=== PATIENT | male | born 1965 | race African-American/Black ===

== ENCOUNTER → 2020-06-30 08:32 | Outpatient (BNVA) | payer BC, SELFPAY | PROVIDERS: Visit Provider Surgery ==

== ENCOUNTER 2020-07-09 07:00 | Day surgery (SDC) | payer BC, SELFPAY ==
--- NOTE | 2020-07-08 09:45 | P.CONAN_ITS ---
Documented by User: Ashlee Hernandez 07/08/20 09:48 HPI - Anesthesia Eval Consult details Narrative: 54yo M for Upper Endoscopy BMI=66 PMFSH Active Problems Active Problems: All Active Problems (Updated 06/30/20 @ 10:38 by Mel Sahu MD) Morbid obesity due to excess calories (Acute) BMI 60.0-69.9, adult (Acute) Shortness of breath (Acute) Preoperative examination (Acute) Past Medical History Medical History (Updated 07/09/20 @ 08:07 by Anh Booker) Cough Iron deficiency Morbid obesity due to excess calories Family History Family History Mother Diabetes Hypertension Thyroid condition Father No problems noted. Brother No problems noted. Son No problems noted. 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 Hx of knee surgery Social History Social History Alcohol intake: current Alcohol intake frequency: holidays/special occasions only Patient Tobacco Use Status: Current someday Tobacco user Tobacco use type: Cigar Years Smoked: 3 cigars per month Smoked in Last 30 Days: No Second Hand Smoke Exposure: No Use of substances other than those prescribed or required for medical reasons: No Are you DNR?: No Advance Directives: No Advance Directives Information Provided: Yes Advance Directives on File: No Meds Allergies Allergy/AdvReac Type Severity Reaction Status Date / Time penicillin V Allergy Severe Anaphylaxis Verified 06/30/20 09:28 Home Medications Medication Instructions Recorded Confirmed Last Taken Type ascorbate calcium (vitamin C) 500 2 g PO DAILY tab 06/30/20 06/30/20 Unknown History mg tablet cholecalciferol (vitamin D3) 125 125 mcg PO DAILY 06/30/20 06/30/20 Unknown History mcg (5,000 unit) capsule mecobalamin (vitamin B12) 5,000 5,000 mcg PO DAILY 06/30/20 06/30/20 Unknown History mcg lozenge Exam Exam Date and Time: July 08, 2020 0945 Assessment and Plan Assessment Anesthesia Assessment: Chart Reviewed Documented by User: Anh Booker 07/09/20 08:10 [facility] Past Medical History Medical History (Updated 07/09/20 @ 08:07 by Anh Booker) Cough Iron deficiency Morbid obesity due to excess calories Family History Family History Mother Diabetes Hypertension Thyroid condition Father No problems noted. Brother No problems noted. Son No problems noted. 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 Hx of knee surgery History of Problems with Anesthesia: No Social History Social History Alcohol intake: current Alcohol intake frequency: holidays/special occasions only Patient Tobacco Use Status: Current someday Tobacco user Tobacco use type: Cigar Years Smoked: 3 cigars per month Smoked in Last 30 Days: No Second Hand Smoke Exposure: No Use of substances other than those prescribed or required for medical reasons: No Are you DNR?: No Advance Directives: No Advance Directives Information Provided: Yes Advance Directives on File: No Meds Allergies Allergy/AdvReac Type Severity Reaction Status Date / Time penicillin V Allergy Severe Anaphylaxis Verified 06/30/20 09:28 Home Medications Medication Instructions Recorded Confirmed Last Taken Type ascorbate calcium (vitamin C) 500 2 g PO DAILY tab 06/30/20 06/30/20 Unknown History mg tablet cholecalciferol (vitamin D3) 125 125 mcg PO DAILY 06/30/20 06/30/20 Unknown History mcg (5,000 unit) capsule mecobalamin (vitamin B12) 5,000 5,000 mcg PO DAILY 06/30/20 06/30/20 Unknown History mcg lozenge Exam Exam Date and Time: Ht 5'6 Wt 398#(180.53kg) Height,Weight and Vital Signs: Vital Signs Temp Pulse Resp BP Pulse Ox 07/09/20 07:21 97.4 F 88 18 143/92 H 99 Pertinent Lab Results Pertinent Lab Results: Lab Results 07/09/20 Range/Units 07:07 COVID-19 ([facility]) Negative (Negative) COVID-19 Clin Com See Note 07/09/2020: EKG-NSR 92 Possible Left atrial enlargement T wave abnormality, consider lateral ischemia Abnormal ECG No previous ECGs available Narrative Narrative: Patient denies any h/o CP. No HTN. Some SOB. States had EKG in the past in CT. Never told of any abnormality Airway Mallampati Class: II TM Dist: >3cm Neck ROM: Full Loose/Missing/Broken Teeth: No (Permanent bridge) Heart: RRR Lungs: CTAB Assessment and Plan Assessment Anesthesia Assessment: Anesthesia Plan Discussed and Chart Reviewed Final Anesthetic Review NPO: Yes ASA Class: III Final Preanesthetic Review: No Changes in Pt Med Stat, Meds/Allgs Chart Reviewed, Consent Obtained/Reviewed and Anes Risks/Benef Reviewed Patient Risk: Intermediate Procedure Risk: Low Assessment/Block/Sedation in SS: Assess/Block/Sedation-SS Anesthetic Plan Anesthetic Plan: MAC: Disposition: Standard PACU
--- NOTE | 2020-07-08 16:04 | MHC.SHP ---
Pre-Procedural Eval Section B Chief Complaint: reflux Allergies: Allergies Allergy/AdvReac Type Severity Reaction Status Date / Time penicillin V Allergy Severe Anaphylaxis Verified 06/30/20 09:28 Plan I have reviewed the history and physical and performed a pertinent physical examination on my patient. No changes have occurred unless specified.
--- NOTE | 2020-07-09 | ECG_ITS ---
Test Reason : SOB PREOP Blood Pressure : / mmHG Vent. Rate : 091 BPM Atrial Rate : 091 BPM P-R Int : 148 ms QRS Dur : 092 ms QT Int : 356 ms P-R-T Axes : 030 -08 -03 degrees QTc Int : 437 ms Normal sinus rhythm Possible Left atrial enlargement T wave abnormality, consider lateral ischemia Abnormal ECG No previous ECGs available Referred By: Ashlee Hernandez Electronically Signed By:Ahsan Beckwith
[2020-07-09 07:21] VITALS: BP 143/92; PULSE 88; RESP 18; TEMP 36.3; O2SAT 99; BMI 63.9
[2020-07-09 07:33] LABS: IDNOW Serial# 9DD0AD1C
[2020-07-09 07:34] LABS: COVID-19 Test Negative (Negative)
[2020-07-09] MEDS: Lactated Ringers 1,000 ML 100 ML IVCONT (07:43)
--- NOTE | 2020-07-09 08:12 | PM.OP ---
Brief Operative Note Date of Service: 07/09/20 Pre-op diagnosis: Weight gain after gastric bypass many years ago Post-op diagnosis: same (Normal gastric bypass anatomy) Procedure: Esophagealgastrojejunoscopy, enteroscopy to 90 cm from the incisors, gastric biopsy x2 Implants: None Surgeon: Mel Sahu MD Anesthesia: MAC Was an Agricultural Inspector used for this Procedure?: No Estimated blood loss (mL): 0 Pathology: other (Gastric pouch biopsy x2) Condition: stable Disposition: PACU
[2020-07-09 08:40] VITALS: BP 143/89; PULSE 92; RESP 14; TEMP 36.3; O2SAT 100
[2020-07-09 08:55] VITALS: BP 152/94; PULSE 87; RESP 16; TEMP 36.3; O2SAT 99
--- NOTE | 2020-07-09 08:56 | OP_ITS ---
SURGEON: Mel Sahu MD PREOPERATIVE DIAGNOSIS: POSTOPERATIVE DIAGNOSIS: PROCEDURE PERFORMED: ESTIMATED BLOOD LOSS: COMPLICATIONS: None. ANESTHESIA: Total intravenous anesthesia with propofol given by the nurse assembler tubing. ASSISTANTS: SPECIMENS: PREPROCEDURE DIAGNOSIS: Weight gain after gastric bypass many years ago. POSTPROCEDURE DIAGNOSIS: Normal gastric bypass without any abnormalities. PROCEDURES PERFORMED: Esophagogastrojejunoscopy, enteroscopy to 90 cm from incisors, and gastric pouch biopsy x2. FINDINGS: Normal gastric pouch, which was slightly enlarged for its age, widely patent gastrojejunal anastomosis. The GE junction was located at 39 cm from the incisors. The anastomosis was located at 43 cm from the incisors. There were no mucosal lesions. CONDITION: Postprocedure is good. DESCRIPTION OF PROCEDURE: The patient was brought into the operating room on the stretcher and placed in the left lateral decubitus position. A safety time-out was performed. A bite block was placed between the teeth. Total intravenous anesthesia was administered using propofol by the nurse assembler tubing. Once the patient was adequately sedated, the gastroscope was placed into posterior oropharynx, passed down the esophagus, evaluating the esophageal mucosa which was normal. The GE junction was located at 39 cm from the incisors. There was no evidence of a hiatal hernia. Gastroscope was passed into the gastric pouch. Gastric pouch was only slightly increased in size for its age. There were no mucosal lesions. The anastomosis was widely patent, but it was not very large and was moderate in size and was located at 43 cm from the incisors. The gastroscope was passed into the efferent limb of the Stephanie limb and an enteroscopy was performed down to 90 cm from the incisors, all of which was normal. Gastroscope was retracted back into the stomach. A gastric pouch biopsy was performed to evaluate for H pylori. The endoscope was used to desufflate the gastric pouch. Gastroscope was removed without difficulty and the patient tolerated the procedure well. Mel Sahu MD UM/MODL / [id number]
== END 2020-07-09 09:50 | disposition home or self-care (01) ==
PROVIDERS: Visit Provider Surgery
PROC: 0DJ08ZZ Inspection of Upper Intestinal Tract, Via Natural or Artificial Opening Endoscopic (ICD-10-PCS; CPT 43235; principal; 2020-07-09 08:10)
DX: K21.9 Gastro-esophageal reflux disease without esophagitis (principal); Z98.84 Bariatric surgery status; R63.5 Abnormal weight gain; F17.290 Nicotine dependence, other tobacco product, uncomplicated; Z88.0 Allergy status to penicillin
CPT/HCPCS: 43239; 36415; 87635; 88305; 88342; 93005; J0330; J2250; J3010